=== PATIENT | female | born 2000 | race Caucasian/White ===

== ENCOUNTER 2020-10-03 10:14 | Emergency (ER) | payer OTHER, SELFPAY ==
[2020-10-03 10:27] VITALS: BP 118/76; PULSE 75; RESP 16; TEMP 36.4; O2SAT 99
--- NOTE | 2020-10-03 11:11 | ED.URI ---
HPI - URI/Sore Throat General Chief Complaint: Upper Respiratory Infection Stated Complaint: Sore Throat Time Seen by Provider: 10/03/20 11:11 Source: patient Mode of arrival: ambulatory Limitations: no limitations History of Present Illness HPI Narrative: Yusuf Moon is a 20 yo female with no PMH is complains of a sore throat since Tuesday and right ear pain, with some congestion. She has tried Zyrtec with no improvement. She denies nausea vomiting diarrhea or fever. Related Data Allergies Allergy/AdvReac Type Severity Reaction Status Date / Time No Known Allergies Allergy Unverified 10/03/20 10:41 Review of Systems Review of Systems: CONSTITUTIONAL: Denies fever, chills, sweats. EYES: Denies visual changes, redness, discharge. ENT: Denies rhinorrhea, has congestion, has sore throat, right otalgia. CARDIOVASCULAR: Denies chest pain, palpitations, edema. RESPIRATORY: Denies dyspnea, wheezing, cough GASTROINTESTINAL: Denies abdominal pain, nausea, vomiting, diarrhea. GENITOURINARY: Denies dysuria, hematuria, abnormal discharge SKIN: Denies rash or itching. NEUROLOGIC: Denies numbness, or focal weakness. PSYCHIATRIC: Denies anxiety or depression. [facility] Past Medical History Medical History No acute medical problems Family History Family History Other No acute medical problems Social History Social History (Updated 10/03/20 @ 11:19 by Jojo House CNP) Smoking status: Never smoker Alcohol intake: current Comments At time of signature, I agree with nursing past medical, surgical, social and family history. There is no relevant family history pertinent to the presenting complaint. Exam Narrative: GENERAL: This is a well-nourished, well-developed patient, in moderate distress. HEAD: normocephalic, atraumatic. EYES:. Sclera clear/white. Vision is grossly intact. EARS: External ears normal, auditory canals erythematous and edematous edematous right greater than left and with drainage, TMs normal not well visualized. Hearing grossly intact. NOSE: External nose normal without nasal discharge, nares without redness, no rhinorrhea. THROAT: Mucous membranes moist, posterior pharynx erythema NECK: Neck supple, tender submandibular lymph node CARDIOVASCULAR: Regular rate and rhythm without murmurs, gallops, or rubs. RESPIRATORY: Clear to auscultation. Breath sounds equal bilaterally. No wheezes, rales, or rhonchi. GASTROINTESTINAL: Abdomen soft, non-tender, SKIN: warm, intact with no suspicious lesions or rash, good texture and turgor. NEURO: awake, alert, and oriented to person, place and time. There were no obvious focal neurologic abnormalities. Steady gait EXTREMITIES: Normal range of motion. BACK: Nontender without deformity Course Course Emergency Course: Patient comes to [facility] with ear pain sore throat not feeling well and has been trying to self medicate at home without improvement x4 days Strep test negative- Amoxicillin 875 twice daily; continue Zyrtec, may start using Flonase Vital Signs Vital signs: Vital Signs Temperature 97.5 F L 10/03/20 10:27 Pulse Rate 75 10/03/20 10:27 Respiratory Rate 16 10/03/20 10:27 Blood Pressure 118/76 10/03/20 10:27 Pulse Oximetry 99 10/03/20 10:27 Temperature 97.5 F L 10/03/20 10:27 Pulse Rate 75 10/03/20 10:27 Respiratory Rate 16 10/03/20 10:27 Blood Pressure 118/76 10/03/20 10:27 Pulse Oximetry 99 10/03/20 10:27 MDM - URI/Sore Throat Differential Diagnosis Differential diagnosis: Likely upper respiratory infection, otitis media, sinusitis, pharyngitis and other Lab Data Labs: Strep Screen Presumptive Negative *(Reference Range: Negative)* Critical Care Time Critical Care Time Critical Care Time: No Discharge Plan Discharge Clinica
== END 2020-10-03 11:26 | disposition home or self-care (01) ==
PROVIDERS: Emergency Provider Nurse Practitioner
DX: J02.9 Acute pharyngitis, unspecified (principal); H66.003 Acute suppurative otitis media without spontaneous rupture of ear drum, bilateral
CPT/HCPCS: 87081; 87880; 99213; G0463

== ENCOUNTER 2021-03-08 11:25 | Emergency (ER) | payer OTHER, SELFPAY ==
[2021-03-08 11:33] VITALS: BP 119/82; PULSE 91; RESP 16; TEMP 36.4; O2SAT 99
--- NOTE | 2021-03-08 11:51 | ED.ALLEREA ---
HPI - Allergic Reaction General Chief complaint: Allergic Reaction Stated complaint: allergic reaction Time Seen by Provider: 03/08/21 11:51 Source: patient, RN notes reviewed and old records reviewed Mode of arrival: ambulatory Limitations: no limitations History of Present Illness HPI narrative: 20-year-old female who presents to [facility] with development of rash which started on which has become increasingly itchy and burning and has spread. Patient has diffuse small red raised rash on her body which stone and itches and is warm to touch.Patient did start new medication 2 weeks ago of Lamotrigine mood stabilizer. Patient reports no new soaps,lotions, foods, exposure to new pets,or any new laundry products. Patient denies any shortness of breath or any difficulty with her swallowing, has been taking Benadryl for the itching but rash has not resolved. MD complaint: allergic reaction Onset (ago): day(s) Related Data Home Medications Medication Instructions Recorded Confirmed lamotrigine 03/08/21 Allergies Allergy/AdvReac Type Severity Reaction Status Date / Time No Known Allergies Allergy Unverified 10/03/20 10:41 Review of Systems Review of Systems: CONSTITUTIONAL: Denies fever, chills, or sweats. EYES: Denies visual changes, redness, or discharge. ENT: Denies rhinorrhea, congestion, sore throat, or otalgia. CARDIOVASCULAR: Denies chest pain, palpitations, or edema. RESPIRATORY: Denies cough or dyspnea. GASTROINTESTINAL: Denies abdominal pain, nausea, vomiting, or diarrhea. GENITOURINARY: Denies dysuria or hematuria. SKIN: Positive for fine red raised generalized rash and itching. MUSCULOSKELETAL: Denies back pain, joint pain, or myalgia. NEUROLOGIC: Denies headache, numbness, or weakness. PSYCHIATRIC:Positive for history of anxiety or depression. All systems reviewed & are unremarkable except as noted in HPI and below PMFSH Past Medical History Medical History (Updated 03/08/21 @ 22:23 by Carlene Mason NP) Anxiety and depression Surgical History Surgical History (Updated 03/08/21 @ 22:24 by Carlene Mason NP) No history of previous surgery Family History Family History Other No acute medical problems Social History Social History (Updated 03/08/21 @ 22:23 by Carlene Mason NP) Smoking status: Never smoker Alcohol intake: current Alcohol use details: social Substance use: never Living arrangements: with family Gender identity (if verbalized by the patient): Female Comments At time of signature, agree with nursing past medical, surgical, social and family history. There is no relevant family history pertinent to the presenting complaint Exam Narrative: GENERAL: Well-appearing, well-nourished, and in no acute distress. HEAD: Normocephalic, atraumatic. EYES: PERRLA and EOMI. ENT: Nares clear, no rhinorrhea or epistaxis. Mucous membranes moist.TM's normal with good light reflex, throat pink with no swelling of tonsils, no lesions or exudates. NECK: Supple. no lymphadenopathy CHEST: Clear to auscultation. No respiratory distress.SAO2 99% on room HEART: Regular rate and rhythm. No murmur heard. Normal peripheral pulses. ABDOMEN: Soft, nontender, nondistended, normal active bowel sounds. EXTREMITIES: Normal range of motion. No edema. SKIN: Warm, dry, diffuse red slightly raised rash which does dedrick especially noted to back, abdomen, and arms which is itchy and has increased, does dedrick. NEURO: No focal deficits. Alert and oriented x3. Course Course Level of Care: Express Care Visit Vital Signs Vital signs: Vital Signs Temperature 36.4 C 03/08/21 11:33 Pulse Rate 91 03/08/21 11:33 Respiratory Rate 16 03/08/21 11:33 Blood Pressure 119/82 03/08/21 11:33 Pulse Oximetry 99 03/08/21 11:33 Temperature 36.4 C 03/08/21 11:33 Pulse Rate 91 03/08/21 11:33 Respiratory Rate 16
[2021-03-08] MEDS: methylPREDNISolone ACETATE 80 MG/ML VIAL IM (12:01)
== END 2021-03-08 12:26 | disposition home or self-care (01) ==
PROVIDERS: Emergency Provider Registered Nurse; PCP Physician Assistant
DX: L27.0 Generalized skin eruption due to drugs and medicaments taken internally (principal); T42.6X5A Adverse effect of other antiepileptic and sedative-hypnotic drugs, initial encounter; F32.A Depression, unspecified
CPT/HCPCS: 96372; 99213; G0463; J1040

== ENCOUNTER 2022-05-09 10:08 | Emergency (ER) | payer OTHER, SELFPAY ==
[2022-05-09 10:16] VITALS: BP 122/72; PULSE 69; RESP 16; TEMP 36.6; O2SAT 100
--- NOTE | 2022-05-09 10:23 | ED.SKABFB ---
HPI - Skin/Abscess/Foreign Bdy General Chief complaint: Skin/Abscess/Foreign Body Stated complaint: Allergic Reaction Time Seen by Provider: 05/09/22 10:30 Source: patient Mode of arrival: ambulatory Limitations: no limitations History of Present Illness HPI narrative: 21-year-old female presents with complaint of redness, itching around the eyes for the past 5 days. started a new conceal are 1 week ago. Two days later she had itching and redness. Started applying Vaseline with no improvement. Started [id number] hydrocortisone cream yesterday. Still having no improvement. No drainage to bilateral ear eyes. Nonpainful. All systems reviewed and negative except as noted above. Related Data Allergies Allergy/AdvReac Type Severity Reaction Status Date / Time lamotrigine [From Lamictal] Allergy Rash Verified 05/09/22 10:16 Review of Systems Review of Systems: CONSTITUTIONAL: Denies fever, chills, or sweats. EYES: Denies visual changes, redness, or discharge. ENT: Denies rhinorrhea, congestion, sore throat, or otalgia. CARDIOVASCULAR: Denies chest pain, palpitations, or edema. RESPIRATORY: Denies cough or dyspnea. GASTROINTESTINAL: Denies abdominal pain, nausea, vomiting, or diarrhea. GENITOURINARY: Denies dysuria or hematuria. SKIN: Reports redness, itching to upper and lower eyelids. MUSCULOSKELETAL: Denies back pain, joint pain, or myalgia. NEUROLOGIC: Denies headache, numbness, or weakness. PSYCHIATRIC: Denies anxiety or depression. All other systems reviewed are negative, except as documented in HPI. [facility] Past Medical History Medical History (Updated 05/09/22 @ 10:35 by Althea Kirkpatrick NP) Anxiety and depression Surgical History Surgical History (Updated 03/08/21 @ 22:24 by Carlene Mason NP) No history of previous surgery Family History Family History Other No acute medical problems Social History Social History (Updated 03/08/21 @ 22:23 by Carlene Mason NP) Smoking status: Never smoker Alcohol intake: current Alcohol use details: social Substance use: never Living arrangements: with family Gender identity (if verbalized by the patient): Female Comments At time of signature, agree with nursing past medical, surgical, social and family history. There is no relevant family history pertinent to the presenting complaint. Exam Narrative: GENERAL: This is a well-nourished, well-developed patient, in no apparent distress. HEAD: normocephalic, atraumatic. EYES: PERRL. Sclera clear/white. Vision is grossly intact. EARS: External ears normal NOSE: External nose normal NECK: Neck supple, non-tender without lymphadenopathy, masses or thyromegaly. CARDIOVASCULAR: Regular rate and rhythm without murmurs, gallops, or rubs. RESPIRATORY: Clear to auscultation. Breath sounds equal bilaterally. No wheezes, rales, or rhonchi. SKIN: warm, Dry, intact with no suspicious lesions, good texture and turgor. Erythema to upper and lower eyelids bilaterally. Difficult to assess dryness of skin due to pt recently applying vaseline. Mild swelling. NEURO: awake, alert, and oriented to person, place and time. There were no obvious focal neurologic abnormalities. EXTREMITIES: No joint tenderness, effusion, or edema noted. Course Course Level of Care: Express Care Visit Vital Signs Vital signs: Vital Signs Temperature 36.6 C 05/09/22 10:16 Pulse Rate 69 05/09/22 10:16 Respiratory Rate 16 05/09/22 10:16 Blood Pressure 122/72 05/09/22 10:16 Pulse Oximetry 100 05/09/22 10:16 Oxygen Delivery Room Air 05/09/22 10:16 Temperature 36.6 C 05/09/22 10:16 Pulse Rate 69 05/09/22 10:16 Respiratory Rate 16 05/09/22 10:16 Blood Pressure 122/72 05/09/22 10:16 Pulse Oximetry 100 05/09/22 10:16 Oxygen Delivery Room Air 05/09/22 10:16 Reviewed MDM - Skin/Abscess/Foreign Bdy MDM
== END 2022-05-09 10:38 | disposition home or self-care (01) ==
PROVIDERS: Emergency Provider Nurse Practitioner Family; PCP Physician Assistant
DX: L25.9 Unspecified contact dermatitis, unspecified cause (principal)
CPT/HCPCS: 99213; G0463

== ENCOUNTER 2022-05-18 12:45 | Emergency (ER) | payer OTHER, SELFPAY ==
[2022-05-18 13:05] VITALS: BP 128/77; PULSE 63; RESP 16; TEMP 36.3; O2SAT 99
[2022-05-18 13:22] VITALS: BP 128/77; PULSE 63; RESP 16; TEMP 36.3; O2SAT 99
--- NOTE | 2022-05-18 13:42 | ED.ALLEREA ---
HPI - Allergic Reaction General Chief complaint: Allergic Reaction Stated complaint: Allergic Reaction Source: patient Mode of arrival: ambulatory Limitations: no limitations History of Present Illness HPI narrative: Patient presents for evaluation of redness and swelling to bilateral upper eyelid since yesterday. 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 She was seen here on 05/09/22 for similar symptoms. At that time it was thought that her symptoms were an allergic reaction stemming from makeup. She was given a Medrol Dosepak which she completed as directed. She resumed using makeup and had no allergic reaction thereafter. She developed swelling and redness to the upper eyelids yesterday after being at the lab. Denies any difficulty breathing or swallowing. Related Data Home Medications Medication Instructions Recorded Confirmed Iud 05/18/22 Allergies Allergy/AdvReac Type Severity Reaction Status Date / Time lamotrigine [From Lamictal] Allergy Rash Verified 05/18/22 12:57 lemon grass Allergy Unknown Uncoded 05/18/22 13:22 Review of Systems Review of Systems: CONSTITUTIONAL: Denies fever, chills, or sweats. EYES: Denies visual changes, redness, or discharge. ENT: Denies rhinorrhea, congestion, sore throat, or otalgia. CARDIOVASCULAR: Denies chest pain, palpitations, or edema. RESPIRATORY: Denies cough or dyspnea. GASTROINTESTINAL: Denies abdominal pain, nausea, vomiting, or diarrhea. GENITOURINARY: Denies dysuria or hematuria. SKIN: Reports redness and swelling to the bilateral upper eyelids. MUSCULOSKELETAL: Denies back pain, joint pain, or myalgia. NEUROLOGIC: Denies headache, numbness, dizziness, or weakness. PSYCHIATRIC: Denies anxiety or depression. [facility] Past Medical History Medical History Anxiety and depression Surgical History Surgical History No history of previous surgery Family History Family History Other No acute medical problems Social History Social History Smoking status: Never smoker Alcohol intake: current Alcohol use details: social Substance use: never Living arrangements: with family Gender identity (if verbalized by the patient): Female Exam Narrative: GENERAL: Well-appearing, well-nourished, and in no acute distress. HEAD: Normocephalic, atraumatic. EYES: PERRLA and EOMI. ENT: Nares clear, no rhinorrhea or epistaxis. Mucous membranes moist. Oropharynx without tonsillar hypertrophy exudate or other lesions. Bilateral TMs pearly alcantara nonbulging NECK: Supple. No adenopathy or masses. No carotid bruits or JVD CHEST: Clear to auscultation. No respiratory distress. No wheezes rales or rhonchi HEART: Regular rate and rhythm. No murmur heard. Normal peripheral pulses. ABDOMEN: Soft, nontender, nondistended, normal active bowel sounds. EXTREMITIES: Normal range of motion. No edema. SKIN: There is mild erythema noted to bilateral upper eyelids. NEURO: No focal deficits. Alert and oriented x3. PSYCH: Normal mood and affect. 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 She was recently on a Medrol Dosepak. I opted to taper prednisone due to recent steroid use. Will discharge with prednisone and Benadryl. Advise she follow up with an axle bearing polisher to prevent recurrent episodes in the future. Advised she go to the emergency department for difficulty breathing or swallowing. Patient in agreement with plan care. Level of Care: Express Care Visit Vital Signs Vital signs: Vital Signs Temperature 36.3 C L 05/18/22 13:05 Pulse Rate 63 05/18/22 13:05
== END 2022-05-18 13:44 | disposition home or self-care (01) ==
PROVIDERS: Emergency Provider Nurse Practitioner; PCP Physician Assistant
DX: L23.9 Allergic contact dermatitis, unspecified cause (principal)
CPT/HCPCS: 99213; G0463

== ENCOUNTER 2022-05-31 08:24 | Emergency (ER) | payer OTHER, SELFPAY ==
[2022-05-31 08:40] VITALS: BP 111/64; PULSE 62; RESP 16; TEMP 36.9; O2SAT 100
--- NOTE | 2022-05-31 08:42 | ED.EYEPROB ---
HPI - Eye Problem General Chief complaint: Eye Problems Stated complaint: Allergic Reaction Time Seen by Provider: 05/31/22 08:42 Source: patient Mode of arrival: ambulatory Limitations: no limitations History of Present Illness HPI Narrative: 21-year-old female presents with complaint of redness and itching to bilateral upper eyelids . Patient reports that she has had intermittent episodes of the redness and itching since the middle of March. States she has been on steroids to previous times for the same complaint. Was seen at [facility] twice in May. She has not followed up with her primary care physician regarding symptoms. Has stopped wearing all makeup. No vision changes. 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 all systems reviewed and negative except as noted above. Related Data Allergies Allergy/AdvReac Type Severity Reaction Status Date / Time lamotrigine [From Lamictal] Allergy Rash Verified 05/31/22 08:29 lemon grass Allergy Unknown Uncoded 05/31/22 08:29 Review of Systems Review of Systems: CONSTITUTIONAL: Denies fever, chills, or sweats. EYES: Denies visual changes, redness, or discharge. ENT: Denies rhinorrhea, congestion, sore throat, or otalgia. CARDIOVASCULAR: Denies chest pain, palpitations, or edema. RESPIRATORY: Denies cough or dyspnea. GASTROINTESTINAL: Denies abdominal pain, nausea, vomiting, or diarrhea. GENITOURINARY: Denies dysuria or hematuria. SKIN: Reports redness and itching to bilateral upper eyelids. MUSCULOSKELETAL: Denies back pain, joint pain, or myalgia. NEUROLOGIC: Denies headache, numbness, or weakness. PSYCHIATRIC: Denies anxiety or depression. All other systems reviewed are negative, except as documented in HPI. [facility] Past Medical History Medical History Anxiety and depression Surgical History Surgical History No history of previous surgery Family History Family History Other No acute medical problems Social History Social History Smoking status: Never smoker Alcohol intake: current Alcohol use details: social Substance use: never Living arrangements: with family Gender identity (if verbalized by the patient): Female Comments At time of signature, agree with nursing past medical, surgical, social and family history. There is no relevant family history pertinent to the presenting complaint. Exam Narrative: GENERAL: This is a well-nourished, well-developed patient, in no apparent distress. HEAD: normocephalic, atraumatic. EYES: PERRL. Sclera clear/white. Vision is grossly intact. EARS: External ears normal NOSE: External nose normal NECK: Neck supple, non-tender without lymphadenopathy, masses or thyromegaly. CARDIOVASCULAR: Regular rate and rhythm without murmurs, gallops, or rubs. RESPIRATORY: Clear to auscultation. Breath sounds equal bilaterally. No wheezes, rales, or rhonchi. SKIN: warm, Dry, intact , good texture and turgor. erythema with mild swelling to bilateral upper eyelids with very mild erythema to lower eyelid. no papules, vesicles noted. no scaling. NEURO: awake, alert, and oriented to person, place and time. There were no obvious focal neurologic abnormalities. EXTREMITIES: No joint tenderness, effusion, or edema noted. Course Course Level of Care: Express Care Visit Vital Signs Vital signs: Vital Signs Temperature 36.9 C 05/31/22 08:40 Pulse Rate 62 05/31/22 08:40 Respiratory Rate 16 05/31/22 08:40 Blood Pressure 111/64 05/31/22 08:40 Pulse
== END 2022-05-31 09:03 | disposition home or self-care (01) ==
PROVIDERS: Emergency Provider Nurse Practitioner Family; PCP Physician Assistant
DX: L23.9 Allergic contact dermatitis, unspecified cause (principal)
CPT/HCPCS: 99213; G0463

== ENCOUNTER 2022-09-14 12:41 | Emergency (ER) | payer OTHER, SELFPAY ==
[2022-09-14 12:49] VITALS: BP 120/73; PULSE 65; RESP 16; TEMP 36.8; O2SAT 100
[2022-09-14 12:50] VITALS: BP 120/73; PULSE 65; RESP 16; TEMP 36.8; O2SAT 100
--- NOTE | 2022-09-14 12:52 | ED.SKABFB ---
HPI - Skin/Abscess/Foreign Bdy General Chief complaint: Skin/Abscess/Foreign Body Stated complaint: Allergic Reaction Source: patient Mode of arrival: ambulatory Limitations: no limitations History of Present Illness HPI narrative: 22 y/o female presented for c/o recurrent rash to both upper eyelids worsening for about 2 weeks. Reports eyelids are red, dry, burning, scaling/flaking. Patient has had similar symptoms intermittently since Mar; was seen for the same complaint 3x in May 2022. Applying aquaphor or vaseline to eyelids. Taking Zyrtec daily. Denies lip, tongue, or throat swelling, shortness of breath or wheezing. Denies changes to soap, detergent, lotion, makeup or any other exposures. No one else in the house or any contacts with similar symptoms. Plans to see an information clerk cashier. Has not d/w PCP. Related Data Home Medications Medication Instructions Recorded Confirmed levonorgestrel 17.5 mcg/24 hrs 1 device intrauterine ONCE 09/01/22 09/14/22 (5yrs) 19.5mg intrauterine device (Kyleena) Allergies Allergy/AdvReac Type Severity Reaction Status Date / Time lamotrigine [From Lamictal] Allergy Rash Verified 09/14/22 12:49 lemon grass Allergy Unknown Uncoded 09/14/22 12:49 Review of Systems Review of Systems: CONSTITUTIONAL: Denies body aches, fever, chills EYES:Endorses swelling, redness and itching to upper eyelids; denies FB sensation, photophobia, visual changes ENT: Denies rhinorrhea, congestion, sore throat, or otalgia. CARDIOVASCULAR: Denies chest pain, palpitations RESPIRATORY: Denies cough or dyspnea. GASTROINTESTINAL: Denies abdominal pain, nausea, vomiting, or diarrhea. SKIN: Denies rash, itching, or wounds. MUSCULOSKELETAL: Denies back pain, joint pain, or myalgia. NEUROLOGIC: Denies headache, numbness, tingling, or weakness. All systems reviewed & are unremarkable except as noted in HPI and below PMFSH Past Medical History Medical History Anxiety and depression Vaginal discharge Surgical History Surgical History H/O gynecological procedure Kyleena IUD insertion Family History Family History Other No acute medical problems Social History Social History Smoking status: Never smoker Alcohol intake: current Alcohol use details: social Substance use: never Lack of Transportation: No Lack of Food: Never True Current Housing: I Have Housing Concerned About Future Housing: No Difficulty Paying Gas/Electric Bills: No Difficulty Paying for Meds: No Currently Unemployed: No Education: Bachelor's Degree Difficulty w/ Childcare or Family Care: No Living arrangements: with family Gender identity (if verbalized by the patient): Female Comments At time of signature, I have reviewed and agree with nursing past medical, surgical, social and family history unless otherwise noted. Please see nursing chart for further information. There is no relevant family history pertinent to the presenting complaint Exam Narrative: GENERAL: Well-appearing HEAD: Normocephalic, atraumatic. EYES: Bilateral upper eyelids with symmetrical erythema, very mild swelling; nontender, no apparent scaling, papules or vesicles; No conjunctival injection, no drainage. EOMI, PERRLA. Lid eversion shows no FB or stye. ENT: Mucous membranes pink and moist. No rhinorrhea. TMs normal bilaterally. Throat normal. Uvula midline. CHEST: Clear to auscultation. HEART: Regular rate and rhythm. ABDOMEN: Soft, nontender, nondistended SKIN: Warm, dry, no rash. Normal skin turgor. NEURO: No focal deficits. Alert and oriented x3 PSYCH: Normal affect. Course Course Emergency Course: Patient is aware of diagnosis, understands and agrees to treatment plan.
== END 2022-09-14 13:14 | disposition home or self-care (01) ==
PROVIDERS: Emergency Provider Nurse Practitioner Family; PCP Physician Assistant
DX: L30.9 Dermatitis, unspecified (principal)
CPT/HCPCS: 99213; G0463

== ENCOUNTER 2023-04-12 08:29 | Emergency (ER) | payer OTHER, SELFPAY ==
--- NOTE | ~2023-04-12 | XR_ITS ---
EXAMINATION: XR foot LT min 3V DATE: 04/12/2023 09:51 INDICATION: Pain at the base of the left great toe TECHNIQUE: Dorsoplantar, two oblique and lateral views of the left foot were obtained. COMPARISON: None. FINDINGS: Alignment is normal. No fracture. Joint spaces are normal. Soft tissues are unremarkable. IMPRESSION: 1. Negative left foot radiographs. Reviewed, dictated and finalized at location [facility]
[2023-04-12 08:44] VITALS: BP 120/91; PULSE 69; RESP 16; TEMP 36.6; O2SAT 100
--- NOTE | 2023-04-12 09:38 | ED.GENADULT ---
HPI - General Adult General Chief complaint: Extremity Problem,Nontraumatic Stated complaint: left toe pain Time Seen by Provider: 04/12/23 09:26 Source: patient Mode of arrival: ambulatory Limitations: no limitations History of Present Illness HPI narrative: 22-year-old female to [facility] with complaint left foot pain at base of great toe that she woke up 2 days ago. Patient denies any known injury. Patient endorses activities as normal days prior. Patient has attempted to treat at home with Epsom salt soaks, ibuprofen and ice with some relief. Pain worse with dorsiflexion. Patient denies history of injury or surgeries to foot. Related Data Allergies Allergy/AdvReac Type Severity Reaction Status Date / Time lamotrigine [From Lamictal] Allergy Intermediate Rash Verified 04/12/23 09:15 lemon grass Allergy Unknown Uncoded 04/12/23 09:15 Review of Systems Review of Systems: All systems reviewed & are unremarkable except as noted in HPI and below Constitutional: Constitutional: Reports no additional constitutional complaints Eyes: Eyes: Reports no additional eye complaints ENT: Reports system reviewed and no additional complaints, except as documented Cardiovascular: Cardiovascular: Reports no additional cardiovascular complaints, Denies chest pain and Denies dyspnea Respiratory: Respiratory: Reports no additional respiratory complaints, Denies cough and Denies dyspnea Musculoskeletal: Musculoskeletal: Reports no additional musculoskeletal complaints Neurologic: Reports system reviewed and no additional complaints, except as documented Psychiatric: Psychiatric: Reports no additional psychiatric complaints PMFSH Past Medical History Medical History Anxiety and depression Vaginal discharge Surgical History Surgical History H/O gynecological procedure Kyleena IUD insertion Family History Family History Other No acute medical problems Social History Social History Smoking status: Never smoker Alcohol intake: current Alcohol use details: social Substance use: never Lack of Transportation: No Lack of Food: Never True Current Housing: I Have Housing Concerned About Future Housing: No Difficulty Paying Gas/Electric Bills: No Difficulty Paying for Meds: No Currently Unemployed: No Education: Bachelor's Degree Difficulty w/ Childcare or Family Care: No Living arrangements: with family Gender identity (if verbalized by the patient): Female Comments At the time of my signature, I reviewed and agree with the nursing past medical, surgical, social, and family history. There is no relevant family history pertinent to the patient complaint. Exam Const: General: cooperative, healthy appearing, comfortable, no acute distress, alert and well nourished Nutritional Appearance: well nourished Orientation/consciousness: patient oriented x3 Limitations: no limitations HENMT: Head: normal to inspection Ears: external ears normal Face/Nose/Sinus: Normal external nose present, Normal nares present, normal facial exam, No erythema and No edema Face and sinus: normal facial exam, no erythema and no edema Mouth: Yes Normal oral and palatal mucosa present Eyes: General: appearance normal, both eyes and all related structures Neck: Neck: normal visual inspection, full ROM and no meningeal signs Lymphatic: no lymphadenopathy noted and no lymphedema noted Chest: Chest palpation & inspection: normal inspection of the chest Resp: Effort & Inspection: normal respiratory effort and able to speak in complete sentences Auscultation: clear to auscultation bilaterally Cardio: Jugular venous distension: no JVD Rate: regular rate Rhythm: regular rhythm Peripheral p
--- NOTE | 2023-04-12 10:12 | ED.GENADULT ---
HPI - General Adult General Chief complaint: Extremity Problem,Nontraumatic Stated complaint: left toe pain Time Seen by Provider: 04/12/23 09:26 Source: patient Mode of arrival: ambulatory Limitations: no limitations Related Data Allergies Allergy/AdvReac Type Severity Reaction Status Date / Time lamotrigine [From Lamictal] Allergy Intermediate Rash Verified 04/12/23 09:15 lemon grass Allergy Unknown Uncoded 04/12/23 09:15 [facility] Past Medical History Medical History Anxiety and depression Vaginal discharge Surgical History Surgical History H/O gynecological procedure Kyleena IUD insertion Family History Family History Other No acute medical problems Social History Social History Smoking status: Never smoker Alcohol intake: current Alcohol use details: social Substance use: never Lack of Transportation: No Lack of Food: Never True Current Housing: I Have Housing Concerned About Future Housing: No Difficulty Paying Gas/Electric Bills: No Difficulty Paying for Meds: No Currently Unemployed: No Education: Bachelor's Degree Difficulty w/ Childcare or Family Care: No Living arrangements: with family Gender identity (if verbalized by the patient): Female Course Vital Signs Vital signs: Vital Signs Temperature 36.6 C 04/12/23 08:44 Pulse Rate 69 04/12/23 08:44 Respiratory Rate 16 04/12/23 08:44 Blood Pressure 120/91 H 04/12/23 08:44 Pulse Oximetry 100 04/12/23 08:44 Oxygen Delivery Room Air 04/12/23 08:44 Temperature 36.6 C 04/12/23 08:44 Pulse Rate 69 04/12/23 08:44 Respiratory Rate 16 04/12/23 08:44 Blood Pressure 120/91 H 04/12/23 08:44 Pulse Oximetry 100 04/12/23 08:44 Oxygen Delivery Room Air 04/12/23 08:44 Medical Decision Making Vital Signs Vital Signs: Vital Signs Temperature 36.6 C 04/12/23 08:44 Pulse Rate 69 04/12/23 08:44 Respiratory Rate 16 04/12/23 08:44 Blood Pressure 120/91 H 04/12/23 08:44 Pulse Oximetry 100 04/12/23 08:44 Oxygen Delivery Room Air 04/12/23 08:44 Temperature 36.6 C 04/12/23 08:44 Pulse Rate 69 04/12/23 08:44 Respiratory Rate 16 04/12/23 08:44 Blood Pressure 120/91 H 04/12/23 08:44 Pulse Oximetry 100 04/12/23 08:44 Oxygen Delivery Room Air 04/12/23 08:44 Discharge Plan Discharge Clinical Impression: Metatarsalgia Patient Disposition: Home, Self-Care Condition: Stable Instructions: P.R.I.C.E. Treatment (ED) Additional Instructions: It is important that you wear a good supportive tennis shoe when possible. If symptoms become worse follow-up with podiatry. Patient Language: Yoruba Follow-up/Referrals: Luis Alas JR, MD [Physician] - Anthony,DANIEL Alvarenga [Primary Care Provider] - Manjeet Kramer DPM [Physician] - Stand Alone Forms: Work/School Release IP Time of Disposition: 10:10
== END 2023-04-12 10:17 | disposition home or self-care (01) ==
PROVIDERS: Emergency Provider Nurse Practitioner Family; PCP Physician Assistant
DX: M77.42 Metatarsalgia, left foot (principal)
CPT/HCPCS: 73630; 99213; G0463

== ENCOUNTER 2023-07-27 11:09 | Emergency (ER) | payer OTHER, SELFPAY ==
[2023-07-27 11:25] VITALS: BP 113/66; PULSE 59; RESP 16; TEMP 34.8; O2SAT 99
--- NOTE | 2023-07-27 11:34 | ED.EAR ---
HPI - Ear Problem General Chief complaint: Ear Stated complaint: left ear hurts,fever Time Seen by Provider: 07/27/23 11:34 Source: patient Mode of arrival: ambulatory Limitations: no limitations History of Present Illness HPI Narrative: 22-year-old female presents with complaint pain to left ear for 2 days. Patient has constant. States feels like throbbing and sharp at Times. No recent URI symptoms. Afebrile. All systems reviewed and negative except as noted above. Related Data Allergies Allergy/AdvReac Type Severity Reaction Status Date / Time lamotrigine [From Lamictal] Allergy Intermediate Rash Verified 07/27/23 11:15 lemon grass Allergy Unknown Uncoded 07/27/23 11:15 Review of Systems Review of Systems: CONSTITUTIONAL: Denies fever, chills, or sweats. EYES: Denies visual changes, redness, or discharge. ENT: Denies rhinorrhea, congestion, sore throat . Reports left ear pain. CARDIOVASCULAR: Denies chest pain, palpitations, or edema. RESPIRATORY: Denies cough or dyspnea. GASTROINTESTINAL: Denies abdominal pain, nausea, vomiting, or diarrhea. GENITOURINARY: Denies dysuria or hematuria. SKIN: Denies rash or itching. MUSCULOSKELETAL: Denies back pain, joint pain, or myalgia. NEUROLOGIC: Denies headache, numbness, or weakness. PSYCHIATRIC: Denies anxiety or depression. All other systems reviewed are negative, except as documented in HPI. [facility] Past Medical History Medical History Anxiety and depression Vaginal discharge Surgical History Surgical History H/O gynecological procedure Kyleena IUD insertion Family History Family History Other No acute medical problems Social History Social History Smoking status: Never smoker Alcohol intake: current Alcohol use details: social Substance use: never Lack of Transportation: No Lack of Food: Never True Current Housing: I Have Housing Concerned About Future Housing: No Difficulty Paying Gas/Electric Bills: No Difficulty Paying for Meds: No Currently Unemployed: No Education: Bachelor's Degree Difficulty w/ Childcare or Family Care: No Living arrangements: with family Gender identity (if verbalized by the patient): Female Comments At time of signature, agree with nursing past medical, surgical, social and family history. There is no relevant family history pertinent to the presenting complaint. Exam Narrative: GENERAL: This is a well-nourished, well-developed patient, in no apparent distress. HEAD: normocephalic, atraumatic. EYES: PERRL. Sclera clear/white. Vision is grossly intact. EARS: External ears normal, auditory canals clear and without drainage, Fluid and mild erythema to left TM. Right TM normal. No perforation bilaterally. Hearing grossly intact. NOSE: External nose normal with no obvious nasal discharge, nares without redness, no rhinorrhea. THROAT: Mucous membranes moist, posterior pharynx clear. NECK: Neck supple, non-tender without lymphadenopathy, masses or thyromegaly. CARDIOVASCULAR: Regular rate and rhythm without murmurs, gallops, or rubs. RESPIRATORY: Clear to auscultation. Breath sounds equal bilaterally. No wheezes, rales, or rhonchi. SKIN: warm, Dry, intact with no suspicious lesions or rash, good texture and turgor. NEURO: awake, alert, and oriented to person, place and time. There were no obvious focal neurologic abnormalities. EXTREMITIES: No joint tenderness, effusion, or edema noted. Course Course Level of Care: Express Care Visit Vital Signs Vital signs: Vital Signs Temperature 34.8 C L 07/27/23 11:25 Pulse Rate 59 L 07/27/23 11:25 Respiratory Rate 16 07/27/23 11:25 Blood Pressure 113/66 07/27/23 11:25 Pulse Oximetry 99 07/27/23 11:25 Ox
== END 2023-07-27 11:45 | disposition home or self-care (01) ==
PROVIDERS: Emergency Provider Nurse Practitioner Family; PCP Physician Assistant
DX: H65.02 Acute serous otitis media, left ear (principal)
CPT/HCPCS: 99213; G0463

== ENCOUNTER 2024-01-16 08:20 | Emergency (ER) | payer OTHER, SELFPAY ==
[2024-01-16 08:29] VITALS: BP 114/67; PULSE 103; RESP 18; TEMP 37.8; O2SAT 99
--- NOTE | 2024-01-16 08:35 | ED.URI ---
HPI - URI/Sore Throat General Chief Complaint: Upper Respiratory Infection Stated Complaint: Sinus Time Seen by Provider: 01/16/24 08:35 Source: patient, RN notes reviewed and old records reviewed Mode of arrival: ambulatory Limitations: no limitations History of Present Illness HPI Narrative: Patient presents with complaints of sore throat, fevers, headache, body aches. Symptoms began yesterday. She took Tylenol last night, has not taken anything for her symptoms today. She does report that pain is increased with swallowing, but she is easily able to do so. No drooling or stridor. Denies any injury or trauma. She is in no distress at this time. Related Data Allergies Allergy/AdvReac Type Severity Reaction Status Date / Time lamotrigine [From Lamictal] Allergy Intermediate Rash Verified 07/27/23 11:15 lemon grass Allergy Unknown Uncoded 07/27/23 11:15 Review of Systems Review of Systems: All systems reviewed & are unremarkable except as noted in HPI and below Constitutional: Constitutional: Reports as per HPI, Reports no additional constitutional complaints, Reports body ache(s), Reports fever(s) and Reports headache(s) ENT: Reports system reviewed and no additional complaints, except as documented and Reports sore throat Cardiovascular: Cardiovascular: Reports no additional cardiovascular complaints Respiratory: Respiratory: Reports no additional respiratory complaints Gastrointestinal: Gastrointestinal: Reports no additional gastrointestinal complaints [facility] Past Medical History Medical History Anxiety and depression Vaginal discharge Surgical History Surgical History H/O gynecological procedure Kyleena IUD insertion Family History Family History Other No acute medical problems Social History Social History Smoking status: Never smoker Alcohol intake: current Alcohol use details: social Substance use: never Lack of Transportation: No Lack of Food: Never True Current Housing: I Have Housing Concerned About Future Housing: No Difficulty Paying Gas/Electric Bills: No Difficulty Paying for Meds: No Currently Unemployed: No Education: Bachelor's Degree Difficulty w/ Childcare or Family Care: No Living arrangements: with family Gender identity (if verbalized by the patient): Female Comments At the time of my signature, I reviewed and agree with the nursing past medical, surgical, social, and family history. There is no relevant family history pertinent to the patient complaint. Exam Const: General: cooperative, no acute distress, alert and awake Orientation/consciousness: oriented to person, oriented to place and oriented to time HENMT: Head: normal to inspection Ears: TM's normal bilaterally Mouth: Yes moist mucous membranes Throat: abnormal tonsil bilateral erythema, exudates and hypertrophy 2+ Resp: Effort & Inspection: normal respiratory effort and able to speak in complete sentences Auscultation: clear to auscultation bilaterally, no crackles, no rales, no rhonchi and no wheezes Cardio: Palpation: normal PMI Rate: regular rate Rhythm: regular rhythm Heart sounds: S1 normal heart sound present and S2 normal heart sound present Neuro: General: oriented to person, oriented to place and oriented to time Cranial nerves: Yes CN's II-XII intact bilaterally Psych: Appearance: grossly normal Thought process: Normal thought process present Insight: Good insight present (Psych) Judgement: Good judgement present (Psych) Course Course Level of Care: Express Care Visit Vital Signs Vital signs: Vital Signs Temperature 100.1 F H 01/16/24 08:29 Pulse Rate 103 H 01/16/24 08:29 Respiratory Rate 18 01/16/24 08:29 Blood Pressure 114/67 01/16/24 08:29 Pulse Oximetry 99 01/16/24 08:29 Oxygen Delivery Room Air 01/16/24 08:29 Temperature 100.1 F H 01/16/24 08:29 Pulse Rate 103 H 01/16/24 08:29 Respiratory Rate 18 01/16/24 08:29 Blood Pressure 114/67 01/16/24 08:29 Pulse Oximetry 99 01/16/24 08:29 Oxygen Delivery Room Air 01/16/24 08:29 Reviewed MDM - URI/Sore Throat MDM Narrative Medical decision making narrative: Positive rapid strep, patient in no distress. Start penicillin. Supportive care measures discussed. Discharge instructions reviewed with patient, as well as provided in writing per nursing staff. The instructions also include specific and strict return/GO TO THE ER as well as f/u information. All questions have been answered, and the patient deny any further questions with discharge and discharge plan. Some parts of this dictation were generated by voice recognition software and may contain typographical and/or grammatical inaccuracies. Differential Diagnosis Differential diagnosis: Likely upper respiratory infection, otitis media and pharyngitis Medical Records Attestation: I reviewed the patient's medical records. Lab Data Attestation: I reviewed the patient's lab results. Discharge Plan Discharge Clinical Impression: Strep pharyngitis Patient Disposition: Home, Self-Care Condition: Stable Instructions: Antibiotic Form, Pharyngitis (ED) Additional Instructions: Take medications as prescribed. Follow-up primary care provider. Emergency department for new or worse symptoms. Discard toothpaste and toothbrush after 48 hours of antibiotic treatment Patient Language: Spanish Prescriptions: New penicillin V potassium 500 mg tablet 500 mg PO Q12H 10 Days Qty: 20 0RF Follow-up/Referrals: Anthony,DANIEL Alvarenga [Primary Care Provider] - 2 Weeks Time of Disposition: 08:48
[2024-01-16 08:50] LABS: EDSTREPNEGPOS1 Positive (Negative)
== END 2024-01-16 08:56 | disposition home or self-care (01) ==
PROVIDERS: Emergency Provider Nurse Practitioner Family; PCP Physician Assistant
DX: J02.0 Streptococcal pharyngitis (principal)
CPT/HCPCS: 87880; 99213; G0463

== ENCOUNTER 2024-10-03 14:12 | Emergency (ER) | payer OTHER, SELFPAY ==
[2024-10-03 14:20] VITALS: BP 133/83; PULSE 77; RESP 18; TEMP 36.7; O2SAT 100
--- NOTE | 2024-10-03 14:35 | ED_ITS ---
HPI - Skin/Abscess/Foreign Bdy General Chief complaint: Skin/Abscess/Foreign Body Stated complaint: bump on tailbone Time Seen by Provider: 10/03/24 14:25 Source: patient Mode of arrival: ambulatory Limitations: no limitations History of Present Illness HPI narrative: Yusuf is a 24-year-old female patient presenting to the clinic today with complaints of possible abscess to the tailbone. Noticed it becoming more painful to sent in the area was swollen on Tuesday (3 days ago). States that her boyfriend's mother tried to open the area after applying lidocaine cream yesterday without success. She reports she has had this before and it has drained on its own. Denies any fevers, chills, or body aches. Is having difficulty walking, standing, and sitting due to the pain. Rates her pain currently 6/10. Related Data Allergies Allergy/AdvReac Type Severity Reaction Status Date / Time lamotrigine (From Lamictal) Allergy Intermediate Rash Verified 07/27/23 11:15 lemon grass Allergy Unknown Uncoded 07/27/23 11:15 Review of Systems Review of Systems: Pertinent positives per HPI. Patient denies any fever, chills, rash, headache, visual changes, dizziness, cough, runny nose, sore throat, shortness of breath, chest pain, palpitations, nausea, vomiting, diarrhea, constipation, abdominal pain, or any urinary issues. [facility] Past Medical History Medical History Anxiety and depression Vaginal discharge Surgical History Surgical History H/O gynecological procedure Kyleena IUD insertion Family History Family History Other No acute medical problems Social History Social History Smoking status: Never smoker Alcohol intake: current Alcohol use details: social Substance use: never Lack of Transportation: No Lack of Food: Never True Current Housing: I Have Housing Concerned About Future Housing: No Difficulty Paying Gas/Electric Bills: No Difficulty Paying for Meds: No Currently Unemployed: No Education: Bachelor's Degree Difficulty w/ Childcare or Family Care: No Living arrangements: with family Gender identity (if verbalized by the patient): Female Comments At the time of my signature, I reviewed and agree with the nursing past medical, surgical, social, and family history. There is no relevant family history pertinent to the patient complaint. Exam Narrative: General: Well-developed, well nourished, in no apparent distress Head: Normocephalic, atraumatic. Cardio: Regular rate and rhythm, s1 and s2 normal, no murmur appreciated. Resp: Clear to auscultation bilaterally, no rhonchi, rales, wheezing or rubs. Integumentary: [place], warm, and dry. 6 x 4 cm red, raised, tender to palpation indurated abscess with fluctuance and erythema to the right gluteal cleft. Course Course Emergency Course: Portions of this record may have been created with voice recognition software. Level of Care: Express Care Visit Vital Signs Vital signs: Vital signs reviewed Procedures Abscess I/D Right gluteal cleft: Date of Incision: 10/03/24 Side (if applicable): right Local Anesthetic: lidocaine 1% and with epi Amount of anesthesia used (mL): 2 Technique: incised with #11 blade Amount of fluid expressed (mL): 20 Irrigation: Yes Packing used?: iodoform I&D Results: Pus and Blood Complications: other (None) Abcess I&D Additional Comments: Verbal consent obtained for incision and drainage. Risk and benefits explained and patient voiced understanding. Area was cleansed with betadine. Area was prepped and draped using sterile technique. 27 gauge needle was then used to instill (2) ml of lidocaine with epi into the wound edges. Patient tolerated well and anesthesia was appropriate. An 11 blade scalpel was then used to make a 0.5cm incision over the abscess. Greenish brown bloody exudate expressed from cavity. Irrigation was performed using sterile normal saline. Wound culture obtained and sent to lab. Patient tolerated procedure well. Sterile dressing was applied. MDM - Skin/Abscess/Foreign Bdy MDM Narrative Medical decision making narrative: At the time of visit patient is resting comfortably on the exam table. Patient appears to be nontoxic. complaints of possible abscess to the tailbone. Noticed it becoming more painful to sent in the area was swollen on Tuesday (3 days ago). States that her boyfriend's mother tried to open the area after applying lidocaine cream yesterday without success. She reports she has had this before and it has drained on its own. Denies any fevers, chills, or body aches. Is having difficulty walking, standing, and sitting due to the pain. Rates her pain currently 6/10. On exam patient has a 6 x 4 cm red, raised, indurated abscess with fluctuance to the right gluteal cleft. Area is tender to palpation with mild erythema. Incision and drainage procedure with reviewed with risk and benefits and patient agrees to procedure. Procedures: Incision and drainage was performed. Area was cleansed and lidocaine with epi was used to provide appropriate anesthesia. 0.5 cm incision was performed using an 11 blade. Was able to express greenish brown purulent discharge. Normal saline sterile irrigation was performed. Quarter-inch iodoform packing was inserted into the wound bed. Patient tolerated procedure well. Wound culture was obtained Labs: Wound culture was obtained and sent to the lab Plan: Patient has a 6 x 4 cm abscess to the right gluteal cleft. Incision and drainage was performed. Prescription for Augmentin antibiotics was sent to the pharmacy. Will have patient follow-up in 2-3 days for a wound check-did tell patient I was back in the clinic over the weekend if she wants to come in to be evaluated at that time. Supportive measures were discussed with the patient and they voiced understanding discharge instructions and agrees to treatment plan. Return precautions reviewed Differential Diagnosis Differential diagnosis: Likely abscess of skin or subcutaneous tissue, viral exanthem, dermatophytosis, urticaria, herpes zoster, allergic reaction to drug, cellulitis, eczema, insect bites, impetigo and contact dermatitis Discharge Plan Discharge Clinical Impression: Abscess of gluteal cleft Patient Disposition: Home Condition: Stable Instructions: Antibiotic Form, Abscess (ED), Abscess Incision and Drainage (DC) Additional Instructions: Incision and drainage was performed in the clinic today. Wound culture was obtained and sent to the lab Take Augmentin as prescribed Increase fluids and stay well hydrated May take Tylenol/Motrin as needed for pain as per bottle directions Keep packing in place for 2-3 days Go to the emergency room if symptoms worsen-you develop fever, increasing pain, increase in swelling, increase in redness, increase in purulent discharge, or streaking Follow-up with your PCP in 2-3 days for a wound check or you may return to the clinic for recheck with me in [place] on Tuesday or Tuesday of this week Patient Language: Kyrgyz Prescriptions: New amoxicillin-pot clavulanate 875-125 mg tablet 1 tablet PO Q12H 10 Days Qty: 20 0RF No Action penicillin V potassium 500 mg tablet 500 mg PO Q12H 10 Days Qty: 20 0RF Follow-up/Referrals: Anthony,DANIEL Alvarenga [Primary Care Provider, Unknown] Time of Disposition: 15:13 Quality NIHSS Nursing Documentation ED NIHSS nursing documentation: reviewed/agree
== END 2024-10-03 15:15 | disposition home or self-care (01) ==
PROVIDERS: Emergency Provider Nurse Practitioner Family; PCP Physician Assistant
DX: L02.31 Cutaneous abscess of buttock (principal)
CPT/HCPCS: 10060; 99213; G0463

== ENCOUNTER 2024-10-07 11:57 | Emergency (ER) | payer OTHER, SELFPAY ==
--- NOTE | 2024-10-07 11:58 | ED_ITS ---
HPI - Wound/Laceration General Chief Complaint: Wound/Laceration Stated Complaint: check up Time Seen by Provider: 10/07/24 11:58 Source: patient Mode of arrival: ambulatory Limitations: no limitations History of Present Illness HPI narrative: Yusuf is a 24-year-old female patient presenting to the clinic today for a follow-up of her gluteal cleft abscess. She had incision and drainage on TuesdayOctober 03. Was prescribed Augmentin at that time. Wound culture results have not finalized yet but she has had some g positive cocci and Gram- negative rods in her culture report. She reports her symptoms have improved-the pain and swelling has gone down. She reports that the area step draining yesterday. The packing fell out on its own. Related Data Allergies Allergy/AdvReac Type Severity Reaction Status Date / Time lamotrigine (From Lamictal) Allergy Intermediate Rash Verified 10/07/24 11:59 lemon grass Allergy Unknown Uncoded 10/07/24 11:59 PMFSH Past Medical History Medical History Anxiety and depression Vaginal discharge Surgical History Surgical History H/O gynecological procedure Kyleena IUD insertion Family History Family History Other No acute medical problems Social History Social History Smoking status: Never smoker Alcohol intake: current Alcohol use details: social Substance use: never Lack of Transportation: No Lack of Food: Never True Current Housing: I Have Housing Concerned About Future Housing: No Difficulty Paying Gas/Electric Bills: No Difficulty Paying for Meds: No Currently Unemployed: No Education: Bachelor's Degree Difficulty w/ Childcare or Family Care: No Living arrangements: with family Gender identity (if verbalized by the patient): Female Comments At the time of my signature, I reviewed and agree with the nursing past medical, surgical, social, and family history. There is no relevant family history pertinent to the patient complaint. Exam Narrative: General: Well-developed, well nourished, in no apparent distress Head: Normocephalic, atraumatic. Cardio: Regular rate and rhythm, s1 and s2 normal, no murmur appreciated. Resp: Clear to auscultation bilaterally, no rhonchi, rales, wheezing or rubs. Integumentary: [place], warm, and dry, intact without lesion, no rashes. Left gluteal cleft abscess has decreased in size, redness, and induration. Area is now measuring 3 x 2 and half-area was initially 6 x 4 cm. No erythema. No drainage Course Course Emergency Course: Portions of this record may have been created with voice recognition software. Level of Care: Express Care Visit Vital Signs Vital signs: Vital Signs Temperature 36.8 C 10/07/24 12:05 Pulse Rate 69 10/07/24 12:05 Respiratory Rate 16 10/07/24 12:05 Blood Pressure 109/68 10/07/24 12:05 Pulse Oximetry 98 10/07/24 12:05 Oxygen Delivery Room Air 10/07/24 12:05 Temperature 36.8 C 10/07/24 12:05 Pulse Rate 69 10/07/24 12:05 Respiratory Rate 16 10/07/24 12:05 Blood Pressure 109/68 10/07/24 12:05 Pulse Oximetry 98 10/07/24 12:05 Oxygen Delivery Room Air 10/07/24 12:05 Vital signs reviewed MDM - Wound/Laceration MDM Narrative Medical decision making narrative: At the time of visit patient is resting comfortably on the exam table. Patient appears to be nontoxic. Follow-up of her gluteal cleft abscess. She had incision and drainage on TuesdayOctober 03. Was prescribed Augmentin at that time. Wound culture results have not finalized yet but she has had some g positive cocci and Gram-negative rods in her culture report. She reports her symptoms have improved-the pain and swelling has gone down. She reports that the area step draining yesterday. The packing fell out on its own. On exam patient has improving left gluteal cleft abscess has decreased in size, redness, and induration. Area is now measuring 3 x 2 and half-area was initially 6 x 4 cm. Plan: Patient has improving left gluteal cleft abscess. Follow-up with PCP in 1 week. Continue antibiotics as prescribed. Will contact patient if culture is report comes back and if she is needing any additional antibiotics. Supportive measures were discussed with the patient and they voiced understanding discharge instructions and agrees to treatment plan. Return precautions reviewed Differential Diagnosis Differential diagnosis: Likely abscess and other (Wound/abscess follow-up) Discharge Plan Discharge Clinical Impression: Abscess, gluteal cleft Patient Disposition: Home Condition: Stable Instructions: Antibiotic Form, Abscess Follow-up (ED) Additional Instructions: Abscess is improving in size and induration Continue Augmentin as prescribed May take Tylenol/Motrin as needed for pain or fever Follow-up with your PCP in 1 week Go to the emergency room if your symptoms worsen-fever, increase in pain, increase in swelling, increase in drainage, or streaking Patient Language: Jordanian Prescriptions: No Action amoxicillin-pot clavulanate 875-125 mg tablet 1 tablet PO Q12H 10 Days Qty: 20 0RF Follow-up/Referrals: Tia Bello RN [Registered Nurse, Nursing] Time of Disposition: 12:14 Quality NIHSS Nursing Documentation ED NIHSS nursing documentation: reviewed/agree
[2024-10-07 12:05] VITALS: BP 109/68; PULSE 69; RESP 16; TEMP 36.8; O2SAT 98
== END 2024-10-07 12:20 | disposition home or self-care (01) ==
PROVIDERS: Emergency Provider Nurse Practitioner Family; PCP Physician Assistant
DX: L02.31 Cutaneous abscess of buttock (principal)
CPT/HCPCS: 99211; G0463